=== PATIENT | male | born 1955 | race Caucasian/White ===

== ENCOUNTER 2020-06-07 12:19 | Observation (INO) | payer MEDICARE ==
[2020-06-07] MEDS ORDERED: FUROSEMIDE 10 MG/ML 10 ML VIAL IV STA (12:41)
[2020-06-07] MEDS ORDERED: HYDROmorphone 0.5 MG/0.5 ML SYRINGE IVP STA (12:43)
--- NOTE | 2020-06-07 12:43 | ED ---
General Adult HPI - General Chief complaint: Extremity Problem,Nontraumatic Stated complaint: leg & feet swelling Time Seen by Provider: 06/07/20 12:25 Source: patient, RN notes reviewed, old records reviewed Mode of arrival: wheelchair Limitations: no limitations - History of Present Illness Initial comments: This is a 64-year-old male who presents emergency Department complaining that he said swelling ever since he had back surgery in March. Patient states the swelling has gotten progressively worse. Patient states on 2 different diuretics but it's not helping. Patient denies any difficulty breathing shortness of breath or chest discomfort. Patient denies any fever chills or cough. Patient states the discomfort in his legs are so bad that he has been unable to sleep lately. Patient denies any history of kidney dysfunction or significant swelling prior to the surgery. Patient denies any calf tenderness - Related Data Allergies Allergy/AdvReac Type Severity Reaction Status Date / Time No Known Allergies Allergy Verified 06/07/20 12:29 Review of Systems ROS Statement: Those systems with pertinent positive or pertinent negative responses have been documented in the HPI. ROS Other: All systems not noted in ROS Statement are negative. Past Medical History Past Medical History: Hypertension History of Any Multi-Drug Resistant Organisms: None Reported Past Surgical History: Back Surgery, Cholecystectomy, Hernia Repair, Joint Replacement, Orthopedic Surgery Past Psychological History: No Psychological Hx Reported Smoking Status: Never smoker Past Alcohol Use History: None Reported Past Drug Use History: None Reported General Exam - General Exam Comments Initial Comments: GENERAL: Patient is well-developed and well-nourished. Patient is nontoxic and well- hydrated and is in mild distress. ENT: Neck is soft and supple. No significant lymphadenopathy is noted. Oropharynx is clear. Moist mucous membranes. Neck has full range of motion without lyly citing any pain. EYES: The sclera were anicteric and conjunctiva were pink and moist. Extraocular movements were intact and pupils were equal round and reactive to light. Eyelids were unremarkable. PULMONARY: Unlabored respirations. Good breath sounds bilaterally. No audible rales rhonchi or wheezing was noted. CARDIOVASCULAR: There is a regular rate and rhythm without any murmurs gallops or rubs. ABDOMEN: Soft and nontender with normal bowel sounds. SKIN: Skin is clear with no lesions or rashes and otherwise unremarkable. NEUROLOGIC: Patient is alert and oriented x3. Cranial nerves II through XII are grossly intact. Motor and sensory are also intact. Normal speech, volume and content. Symmetrical smile. MUSCULOSKELETAL: Normal extremities with adequate strength and full range of motion. 2+ edema bilaterally LYMPHATICS: No significant lymphadenopathy is noted PSYCHIATRIC: Normal psychiatric evaluation. Limitations: no limitations Course Vital Signs 06/07/20 12:26 Temperature 98.2 F Pulse Rate 70 Respiratory 18 Rate Blood Pressure 152/82 O2 Sat by Pulse 99 Oximetry Medical Decision Making - Medical Decision Making EKG shows normal sinus rhythm at 60 bpm ND interval is on a 48 QRS is 82 QT interval 426 QTC is 426. Patient's EKG shows no ST segment elevation or depression or T wave abnormalities are noted. Patient received Lasix in the emergency department - Lab Data Result diagrams: 06/07/20 12:46 06/07/20 12:46 Lab Results 06/07/20 06/07/20 06/07/20 Range/Units 12:46 12:46 12:46 WBC 7.7 (3.8-10.6) k/uL RBC 4.62 (4.30-5.90) m/uL Hgb 12.9 L (13.0-17.5) gm/dL Hct 39.9 (39.0-53.0) % MCV 86.4 (80.0-100.0) fL MCH 27.9 (25.0-35.0) pg MCHC 32.3 (31.0-37.0) g/dL RDW 13.9 (11.5-15.5) % Plt Count 177 (150-450) k/uL Neutrophils % 70 % Lymphocytes % 23 % Monocytes % 4 % Eosinophils % 2 % Basophils % 1 % Neutrophils # 5.3 (1.3-7.7) k/uL Lymphocytes # 1.8 (1.0-4.8) k/uL Monocytes # 0.3 (0-1.0) k/uL Eosinophils # 0.1 (0-0.7) k/uL Basophils # 0.1 (0-0.2) k/uL PT 9.9 (9.0-12.0) sec INR 1.0 (<1.2) APTT 25.2 (22.0-30.0) sec Sodium 139 (137-145) mmol/L Potassium 3.9 (3.5-5.1) mmol/L Chloride 107 (98-107) mmol/L Carbon Dioxide 23 (22-30) mmol/L Anion Gap 9 mmol/L BUN 12 (9-20) mg/dL Creatinine 0.66 (0.66-1.25) mg/dL Est GFR (CKD-EPI)AfAm >90 (>60 ml/min/1.73 sqM) Est GFR (CKD-EPI)NonAf >90 (>60 ml/min/1.73 sqM) Glucose 104 H (74-99) mg/dL Plasma Lactic Acid Bernardo (0.7-2.0) mmol/L Calcium 9.0 (8.4-10.2) mg/dL Magnesium 1.8 (1.6-2.3) mg/dL Total Bilirubin 0.5 (0.2-1.3) mg/dL AST 26 (17-59) U/L ALT 14 (4-49) U/L Alkaline Phosphatase 133 H (38-126) U/L Troponin I (0.000-0.034) ng/mL NT-Pro-B Natriuret Pep pg/mL Total Protein 6.8 (6.3-8.2) g/dL Albumin 4.1 (3.5-5.0) g/dL 06/07/20 06/07/20 06/07/20 Range/Units 12:46 12:46 12:46 WBC (3.8-10.6) k/uL RBC (4.30-5.90) m/uL Hgb (13.0-17.5) gm/dL Hct (39.0-53.0) % MCV (80.0-100.0) fL MCH (25.0-35.0) pg MCHC (31.0-37.0) g/dL RDW (11.5-15.5) % Plt Count (150-450) k/uL Neutrophils % % Lymphocytes % % Monocytes % % Eosinophils % % Basophils % % Neutrophils # (1.3-7.7) k/uL Lymphocytes # (1.0-4.8) k/uL Monocytes # (0-1.0) k/uL Eosinophils # (0-0.7) k/uL Basophils # (0-0.2) k/uL PT (9.0-12.0) sec INR (<1.2) APTT (22.0-30.0) sec Sodium (137-145) mmol/L Potassium (3.5-5.1) mmol/L Chloride (98-107) mmol/L Carbon Dioxide (22-30) mmol/L Anion Gap mmol/L BUN (9-20) mg/dL Creatinine (0.66-1.25) mg/dL Est GFR (CKD-EPI)AfAm (>60 ml/min/1.73 sqM) Est GFR (CKD-EPI)NonAf (>60 ml/min/1.73 sqM) Glucose (74-99) mg/dL Plasma Lactic Acid Bernardo 0.7 (0.7-2.0) mmol/L Calcium (8.4-10.2) mg/dL Magnesium (1.6-2.3) mg/dL Total Bilirubin (0.2-1.3) mg/dL AST (17-59) U/L ALT (4-49) U/L Alkaline Phosphatase (38-126) U/L Troponin I <0.012 (0.000-0.034) ng/mL NT-Pro-B Natriuret Pep 162 pg/mL Total Protein (6.3-8.2) g/dL Albumin (3.5-5.0) g/dL Disposition Clinical Impression: Bilateral leg edema Disposition: ADMITTED IP TO THIS HOSP Referrals: Mitul Craig MD [Primary Care Provider] - 1-2 days Time of Disposition: 14:02
[2020-06-07 13:02] LABS: Basophils # (A) 0.1 k/uL (0-0.2); Basophils % (A) 1 %; Eosinophils # (A) 0.1 k/uL (0-0.7); Eosinophils % (A) 2 %; HCT 39.9 % (39.0-53.0); HGB 12.9 gm/dL (13.0-17.5); Lymphocytes # (A) 1.8 k/uL (1.0-4.8); Lymphocytes % (A) 23 %; MCH 27.9 pg (25.0-35.0); MCHC 32.3 g/dL (31.0-37.0); MCV 86.4 fL (80.0-100.0); Mean Platelet Volume 7.4; Monocytes # (A) 0.3 k/uL (0-1.0); Monocytes % (A) 4 %; Neutrophils # (A) 5.3 k/uL (1.3-7.7); Neutrophils % (A) 70 %; Platelet Count 177 k/uL (150-450); RBC 4.62 m/uL (4.30-5.90); RDW 13.9 % (11.5-15.5); WBC 7.7 k/uL (3.8-10.6)
[2020-06-07 13:18] LABS: ALT 14 U/L (4-49); AST 26 U/L (17-59); African American GFR (CKD) >90 (>60 ml/min/1.73 sqM); Albumin 4.1 g/dL (3.5-5.0); Alkaline Phosphatase 133 U/L (38-126); Anion Gap 9 mmol/L; Blood Urea Nitrogen 12 mg/dL (9-20); Carbon Dioxide 23 mmol/L (22-30); Chloride 107 mmol/L (98-107); Glucose 104 mg/dL (74-99); Magnesium 1.8 mg/dL (1.6-2.3); Non-African American GFR(CKD) >90 (>60 ml/min/1.73 sqM); Partial Thromboplastin Time 25.2 sec (22.0-30.0); Potassium 3.9 mmol/L (3.5-5.1); Prothrombin Time 9.9 sec (9.0-12.0); Sodium 139 mmol/L (137-145); Total Bilirubin 0.5 mg/dL (0.2-1.3); Total Protein 6.8 g/dL (6.3-8.2)
--- NOTE | 2020-06-07 14:22 | US ---
EXAMINATION TYPE: US abdomen limited DATE OF EXAM: 06/07/2020 COMPARISON: NONE CLINICAL HISTORY: Bilateral leg swelling . Bilateral leg edema, rule out venous thrombosis within abd omen EXAM MEASUREMENTS: Liver Length: 12.7 cm Gallbladder Wall: Surgically absent CBD: 0.4 cm Right Kidney: 11.0 x 5.0 x 4.7 cm *Technical limitations due to large amount of overlying bowel content Pancreas: Obscured by bowel gas Liver: only visualized intercostally, visualized portions appear wnl, short segment of portal vein a ppears patent Gallbladder: Surgically absent Evidence for sonographic Ferrari's sign: no CBD: appears wnl Right Kidney: no evidence of hydronephrosis IVC: obscured by overlying bowel content IMPRESSION: No dilated ducts. No evidence of right kidney obstruction. There is flow in the portal vein.
--- NOTE | 2020-06-07 14:35 | XR ---
EXAMINATION TYPE: XR chest 2V DATE OF EXAM: 06/07/2020 COMPARISON: NONE HISTORY: Short of breath TECHNIQUE: 2 views FINDINGS: Heart is normal. Lungs are clear of infiltrate. There are no hilar masses. Costophrenic ang les are clear. There is spurring in the thoracic spine. There is no pleural effusion. IMPRESSION: No active cardiopulmonary disease. Normal heart.
[2020-06-07] MEDS ORDERED: FUROSEMIDE 10 MG/ML 4 ML VIAL IV SCH (16:00)
[2020-06-07] MEDS: HYDROmorphone 0.5 MG/0.5 ML SYRINGE IVP PRN ×2 (16:47→21:02)
[2020-06-07] MEDS ORDERED: LACTULOSE 20 GM/30 ML CUP PO PRN (18:03)
[2020-06-07] MEDS ORDERED: NALOXONE 0.4 MG/ML 1 ML VIAL IV PRN (18:03)
[2020-06-07] MEDS ORDERED: MAGNESIUM HYDROXIDE 2,400 MG/10 ML CUP PO PRN (18:03)
[2020-06-07] MEDS ORDERED: MELATONIN 3 MG TABLET PO PRN (18:03)
[2020-06-07] MEDS ORDERED: ONDANSETRON 4 MG/2 ML VIAL IVP PRN (18:03)
[2020-06-07] MEDS ORDERED: CALCIUM CARBONATE 500 MG CHEWABLE PO PRN (18:03)
[2020-06-07] MEDS ORDERED: ACETAMINOPHEN TAB 325 MG TAB PO PRN (18:03)
[2020-06-07] MEDS ORDERED: MAG HYDROX/AL HYDROX/SIMETH 30 ML CUP PO PRN (18:03)
[2020-06-07] MEDS: MORPHINE SULFATE IR 15 MG TABLET PO PRN (18:39)
[2020-06-07] MEDS ORDERED: SPIRONOLACTONE 25 MG TAB PO SCH (21:00)
[2020-06-07] MEDS ORDERED: DOXAZOSIN 2 MG TAB PO SCH (21:00)
[2020-06-07] MEDS ORDERED: IOPAMIDOL CONTRAST (ORAL USE) VIAL PO PRN (21:27)
--- NOTE | 2020-06-07 22:30 | P.HPIM ---
History of Present Illness H&P Date: 06/07/20 Chief Complaint: Lower extremity edema History of presenting complaint: This is a 64-year-old patient follows with Dr. Craig. Chronic stable medical conditions include BPH, hypertension, osteoarthritis. Patient has his left knee surgery done approximately December of this year and also had his fourth back surgery on March of this year. Patient noted progressive swelling in lower extremity. Finding difficulty to walk. He is to walk in a particular position because of his back surgery. Does use a cane. Denies any chest pain or shortness of breath. No orthopnea or PND. In the ER he was given IV Lasix. No fever no chills. No Review of systems: GEN.: Tired, fair appetite EYES: None HEENT: None NECK: None RESPIRATORY: None CARDIOVASCULAR: [Edema GASTROINTESTINAL: None GENITOURINARY: None MUSCULOSKELETAL: Chronic joint pains LYMPHATICS: None HEMATOLOGICAL: None PSYCHIATRY: Anxious NEUROLOGICAL: None Past medical history to include: Hypertension, osteoarthritis, BPH Social history: . Smoked about half a pack a day for just over [address] Seals 9 months ago. Started drinking any alcohol twinges ago. Not heavy alcohol in the past. Does use a cane. Family history: Reviewed, noncontributory to presentation Physical examination: VITAL SIGNS: 98.2, 70, 18, 152/82, 99% on room air GENERAL: BMI 27.9, sitting up, but anxious. EYES: Pupils equal. Conjunctiva normal. HEENT: External appearance of nose and ears normal, oral cavity grossly normal. NECK: JVD not raised; masses not palpable. HEART: First and second heart sounds are normal; some edema below the knees. LUNGS: Respiratory rate normal; clear to auscultation. ABDOMEN: Soft, nontender, liver spleen not palpable, no masses palpable. PSYCH: Alert and oriented x3; mood and affect anxiousl. NEUROLOGICAL: Cranial nerves grossly intact; no facial asymmetry, power and sensation grossly intact. LYMPHATICS: No lymph nodes palpable in the axilla and neck INVESTIGATIONS, reviewed in the clinical context: White count 7.7 hemoglobin 12.9 platelets 177 potassium 3.9 creatinine 0.66 ProBNP 162 troponin I less than 0.012 EKG tracing personally reviewed by me-normal sinus rhythm Chest x-ray film personally reviewed by me-lung perez clear Assessment: -This is the patient's had some progressive swelling of lower extremity for some time. Patient not very active. He had knee surgery a few months ago for her back surgery. Most likely patient lower extremity venous insufficiency. Patient has some chronic pain from his arthritis. Patient denies any cardiac symptoms of shortness of breath orthopnea PND. Less likely but will rule out any IVC thrombosis. The bilateral leg swelling. Note patient's findings only below the knees. -Primary osteoarthritis -Gait dysfunction from back surgery and arthritis uses a cane -Essential hypertension -BPH - Plan: Care was discussed with the patient. A strep abuse in both lower extremity. Home medications resumed. We will do a computed tomography scan of the abdomen with IV contrast to rule out any venous thrombosis. We'll also add naproxen 250 mg daily 3 times a day for anti-inflammatory effect. Lovenox for DVT p rophylaxis. Past Medical History Past Medical History: Hypertension, Osteoarthritis (OA) History of Any Multi-Drug Resistant Organisms: None Reported Past Surgical History: Back Surgery, Cholecystectomy, Hernia Repair, Joint Replacement, Orthopedic Surgery Additional Past Surgical History / Comment(s): neck surgeries, shoulder surgery Past Anesthesia/Blood Transfusion Reactions: No Reported Reaction Past Psychological History: No Psychological Hx Reported Smoking Status: Former smoker Past Alcohol Use History: None Reported Past Drug Use History: None Reported Medications and Allergies Home Medications Medication Instructions Recorded Confirmed Type Docusate [Colace] 100 mg PO DAILY@119906/07/20 06/07/20 History Doxazosin Mesylate 2 mg PO HS 06/07/20 06/07/20 History Enalapril Maleate [Vasotec] 5 mg PO DAILY 06/07/20 06/07/20 History Ferrous Sulfate [Feosol] 325 mg PO DAILY@119906/07/20 06/07/20 History Furosemide [Lasix] 20 mg PO DAILY PRN 06/07/20 06/07/20 History Morphine Sulfate Ir [MSIR] 30 mg PO TID PRN 06/07/20 06/07/20 History Naproxen [Naprosyn] 500 mg PO DAILY 06/07/20 06/07/20 History Potassium Gluconate 99 mg PO DAILY@119906/07/20 06/07/20 History Spironolactone [Aldactone] 12.5 mg PO HS 06/07/20 06/07/20 History Allergies Allergy/AdvReac Type Severity Reaction Status Date / Time No Known Allergies Allergy Verified 06/07/20 14:31 Physical Exam Vitals: Vital Signs Temp Pulse Pulse Resp BP BP Pulse Ox 06/07/20 19:46 98.3 F 71 18 150/87 96 06/07/20 14:57 98.1 F 75 16 142/74 97 06/07/20 14:23 98.3 F 88 18 142/80 97 06/07/20 12:26 98.2 F 70 18 152/82 99 Intake and Output 06/07/20 06/07/20 06/07/20 06:59 14:59 22:59 Other: Voiding Method Urinal Weight 78.5 kg 78.5 kg Results CBC & Chem 7: 06/07/20 12:46 06/07/20 12:46 Labs: Abnormal Lab Results - Last 24 Hours (Table) 06/07/20 06/07/20 Range/Units 12:46 12:46 Hgb 12.9 L (13.0-17.5) gm/dL Glucose 104 H (74-99) mg/dL Alkaline Phosphatase 133 H (38-126) U/L Thrombosis Risk Factor Assmnt - Choose All That Apply Each Factor Represents 1 point: Medical pt on bed rest, Obesity (BMI >25), Swollen legs (current) Each Risk Factor Represents 2 Points: Age 61-74 years, Patient confined to bed Other congenital or acquired thrombophilia - If yes, enter type in comment: No Thrombosis Risk Factor Assessment Total Risk Factor Score: 7 Thrombosis Risk Factor Assessment Level: High Risk
[2020-06-07] MEDS: NAPROXEN 250 MG TAB PO SCH (22:56)
[2020-06-07] MEDS: ENOXAPARIN 40 MG/0.4 ML SYRINGE SQ SCH (22:58)
--- NOTE | 2020-06-07 23:53 | CT ---
EXAMINATION TYPE: CT abdomen pelvis w con DATE OF EXAM: 06/07/2020 COMPARISON: None HISTORY: bilateral leg edema,r/o IVC etc thrombosis hx of cholecystectomy and hernia repair CT DLP: 993.7 mGycm Automated exposure control for dose reduction was used. CONTRAST: Performed with IV Contrast, patient injected with 100 mL of Isovue 300. Lung bases are clear. There is no pleural effusion. Heart size is normal. There is no pericardial eff usion. Liver shows no focal defect. Common bile duct measures up to 12 mm. Spleen is intact. There is no pancreatic mass. Stomach is intact. There is no adrenal mass. Kidneys show satisfactory contrast opacification. There is no hydronephrosi s. Ureters are not dilated. There is no retroperitoneal adenopathy. Delayed images show normal renal excretion. 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 There is no evidence of pelvic mass. Bladder distends smoothly. There is no inguinal hernia. There is no free fluid in the pelvis. Appendix is not seen. There is no sign of thickened appendix. There is no mesenteric edema. There is no ascites or free air. There is no bowel obstruction. There is multilevel lower lumbar laminectomy defect. There is posterior fusion surgery from L2 to L4. The bony pelvis is intact. Hip joints are intact. There is small hiatal hernia. There is normal contrast opacification of the inferior vena cava. There is normal opacification of th e portal venous system. I see no evidence of venous thrombosis. There appears to be normal contrast o pacification of the femoral and iliac veins. There are a few air bubbles in the subcutaneous tissues over the left mid abdomen consistent with inj ection site. IMPRESSION: No evidence of venous thrombosis. Multilevel lumbar spine surgery. No acute abnormality within the abdomen pelvis.
[2020-06-08] MEDS: MORPHINE SULFATE IR 15 MG TABLET PO PRN ×3 (02:51→15:52)
[2020-06-08 07:17] VITALS: PULSE 71; RESP 18
[2020-06-08 08:08] LABS: African American GFR (CKD) >90 (>60 ml/min/1.73 sqM); Anion Gap 5 mmol/L; Blood Urea Nitrogen 12 mg/dL (9-20); Calcium 8.7 mg/dL (8.4-10.2); Carbon Dioxide 29 mmol/L (22-30); Chloride 103 mmol/L (98-107); Glucose 98 mg/dL (74-99); Non-African American GFR(CKD) >90 (>60 ml/min/1.73 sqM); Potassium 3.7 mmol/L (3.5-5.1); Sodium 137 mmol/L (137-145)
[2020-06-08] MEDS: NAPROXEN 250 MG TAB PO SCH ×2 (08:20→15:51)
[2020-06-08] MEDS: ENOXAPARIN 40 MG/0.4 ML SYRINGE SQ SCH (08:21)
[2020-06-08] MEDS ORDERED: lisinopriL 10 MG TAB PO SCH (09:00)
[2020-06-08] MEDS ORDERED: RX INFO: IV CONTRAST WAS GIVEN 1 EACH MISC MISCELLANE PRN (11:38)
[2020-06-08] MEDS ORDERED: DOCUSATE 100 MG CAP PO SCH (12:00)
[2020-06-08] MEDS ORDERED: FERROUS SULFATE 325 MG TAB PO SCH (12:00)
--- NOTE | 2020-06-08 12:16 | P.PN ---
Subjective Progress Note Date: 06/08/20 Principal diagnosis: Lower extremity swelling HISTORY OF PRESENTING ILLNESS This is a pleasant 64-year-old male with history of BPH, hypertension, osteoarthritis, multiple orthopedic issues with recent knee surgery 3 months ago and back surgery 6 months ago. He presents secondary to lower extremity edema and pain in his legs. He admits that this is mainly been going on for last 3 months after he had knee surgery. He admits that he was not very active at the time. He is on home Lasix and has not noted much help. He has tried compression stockings in the past however states it just made the swelling up to his knees. He denies cardiac history, no heart attack no heart failure diagnosis and no arrhythmias. He does not follow with a orthoptist. He believes he has had a prior stress test which was normal a number of years back. He denies any chest pain, pressure, shortness breath. He has not line is back secondary to orthopedic complaints however no orthopnea. He admits that prior to his surgery 6 months ago he had multiple pains however could walk up of fl ight of stairs without shortness breath or chest pain. Currently he is walking with a walker. He admits his leg pain is much better than yesterday. He was given IV Lasix as well as keeping his legs elevated. DIAGNOSTICS EKG reveals normal sinus rhythm, normal axis, no significant ST or T-wave a bnormalities.. Chest xray no acute cardiopulmonary process.. Laboratory reviewed, white blood cell count 7.7, hemoglobin 12.9, platelets 177, creatinine 0.66, BNP 162, troponin negative 1.. Current cardiac medications include Cardura 2 mg nightly, Lovenox 40 mg subcu daily, lisinopril 10 mg daily, naproxen 250 mg 3 times a day, spironolactone 12.5 mg daily. Patient noted to be on Lasix 20 mg daily as needed at home. REVIEW OF SYSTEMS At the time of my exam: CONSTITUTIONAL: Denies fever or chills. CARDIOVASCULAR: Denies chest pain, shortness of breath, orthopnea, PND or palpitations. + Lower extremity edema RESPIRATORY: Denies cough. GASTROINTESTINAL: Denies abdominal pain, diarrhea, constipation, nausea or vomiting. MUSCULOSKELETAL: + Chronic myalgias. NEUROLOGIC: Denies numbness, tingling or weakness. ENDOCRINE: Denies fatigue, weight change, polydipsia or polyurina. GENITOURINARY: Denies burning, hematuria or urgency with micturation. HEMATOLOGIC: Denies history of anemia or bleeding. PHYSICAL EXAMINATION Blood pressure 132/76 heart rate 71 afebrile and maintaining oxygen saturation on room air. CONSTITUTIONAL: No apparent distress. Obese HEENT: Head is normocephalic. Pupils are equal, round. Sclerae anicteric. Mucous membranes of the mouth are moist. No JVD. No carotid bruit. CHEST EXAMINATION: Lungs are clear to auscultation. No chest wall tenderness is noted on palpation or with deep breathing. HEART EXAMINATION: Regular rate and rhythm. S1, S2 heard. No murmurs, gallops or rub. ABDOMEN: Soft, nontender. Positive bowel sounds. EXTREMITIES: 2+ peripheral pulses, bilateral lower extremity edema to the knees, left somewhat greater than right, left knee scar from prior surgery NEUROLOGIC EXAMINATION: Patient is awake, alert and oriented x3. ASSESSMENT 1. Lower extremity edema likely mainly related to venous insufficiency. No significant signs of heart failure and BNP noted to be 162. We will rule out significant DVT with a VQ scan and d-dimer. 2. History of essential hypertension, well controlled 3. Recent knee and back surgery 3 and 6 months ago respectively PLAN Patient did have a CT abdomen and pelvis to rule out IVC obstruction which was n egative for any IVC obstruction. Patient did have some immobilization during the time of his surgeries and we will check a lower extremity duplex to rule out DVT and a d-dimer. If normal, patient may be discharged home with outpatient follow-up. No significant signs of heart failure. Patient believes he had some improvement with Lasix however is also had his legs elevated and suspect a component of venous insufficiency. We discussed treatment for venous insufficiency including keeping his legs elevated and compression stockings. Patient may be considered for venous patient is an outpatient. Would recommend discontinue naproxen if able to avoid worsening fluid retention Objective - Vital Signs Vital signs: Vital Signs Temp 98.1 F 06/08/20 07:16 Pulse 71 06/08/20 07:48 Resp 18 06/08/20 07:48 BP 132/76 06/08/20 07:16 Pulse Ox 97 06/08/20 07:16 Intake & Output 06/07/20 06/08/20 06/08/20 18:59 06:59 18:59 Intake Total 200 1100 Balance 200 1100 Weight 78.5 kg 77.5 kg Intake: Oral 200 1100 Other: Voiding Method Urinal Urinal Toilet Urinal # Voids 2 - Labs CBC & Chem 7: 06/07/20 12:46 06/08/20 07:20 Labs: Abnormal Lab Results - Last 24 Hours (Table) 06/07/20 06/07/20 Range/Units 12:46 12:46 Hgb 12.9 L (13.0-17.5) gm/dL Glucose 104 H (74-99) mg/dL Alkaline Phosphatase 133 H (38-126) U/L
[2020-06-08 14:39] LABS: African American GFR (CKD) >90 (>60 ml/min/1.73 sqM); Anion Gap 5 mmol/L; Blood Urea Nitrogen 16 mg/dL (9-20); Calcium 9.1 mg/dL (8.4-10.2); Carbon Dioxide 34 mmol/L (22-30); Chloride 100 mmol/L (98-107); Glucose 105 mg/dL (74-99); Non-African American GFR(CKD) >90 (>60 ml/min/1.73 sqM); Potassium 4.1 mmol/L (3.5-5.1); Sodium 139 mmol/L (137-145)
--- NOTE | 2020-06-08 14:46 | CT ---
EXAMINATION TYPE: CT angio chest DATE OF EXAM: 06/08/2020 COMPARISON: None HISTORY: Bilateral leg edema, leg pain CT DLP: 467.9 mGycm Automated exposure control for dose reduction was used. CONTRAST: Performed with IV Contrast, patient injected with 100, wasted 34 ml mL of Isovue 370. There are 3-D post processed images. The lungs are clear of consolidation. There is no evidence of a pulmonary mass. There is no pleural e ffusion. Heart size is normal. There is no pericardial effusion. There are no hilar masses. There is no mediastinal adenopathy. Thoracic aorta is intact. There is no aneurysm or dissection. There is no evidence of any filling defect in the pulmonary arteries. There i s small hiatal hernia. There is hypertrophic degenerative spurring in the thoracic spine. IMPRESSION: No evidence of pulmonary embolism. Negative exam.
--- NOTE | 2020-06-08 14:50 | US ---
EXAMINATION TYPE: US venous doppler duplex LE DATE OF EXAM: 06/08/2020 2:39 PM COMPARISON: NONE CLINICAL HISTORY: r/o DVT. Leg are very painful and swollen, no h/o dvt SIDE PERFORMED: Bilateral TECHNIQUE: The lower extremity deep venous system is examined utilizing real time linear array sonog raisa with graded compression, doppler sonography and color-flow sonography. VESSELS IMAGED: External Iliac Vein (EIV) Common Femoral Vein Deep Femoral Vein Greater Saphenous Vein * Femoral Vein Popliteal Vein Small Saphenous Vein * Proximal Calf Veins (* superficial vessels) Right Leg: Negative for DVT Left Leg: Negative for DVT IMPRESSION: No sign of deep vein thrombosis in both legs.
[2020-06-08 15:07] VITALS: BP 125/76; TEMP 97.8
--- NOTE | 2020-06-08 23:35 | P.DS ---
Providers Date of admission: 06/07/20 14:27 Expected date of discharge: 06/08/20 Attending physician: Reymundo Guzman Consults: 06/07/20 14:08 Consult Physician Urgent Consulting Provider: [facility] Consult Reason/Comments: Bilateral leg edema Do you want consulting provider notified?: Yes [facility] Course: Chief Complaint: Lower extremity edema History of presenting complaint: This is a 64-year-old patient follows with Dr. Craig. Chronic stable medical conditions include BPH, hypertension, osteoarthritis. Patient has his left knee surgery done approximately December of this year and also had his fourth back surgery on March of this year. Patient noted progressive swelling in lower extremity. Finding difficulty to walk. He is to walk in a particular position because of his back surgery. Does use a cane. Denies any chest pain or shortness of breath. No orthopnea or PND. In the ER he was given IV Lasix. No fever no chills. No. Computed tomography scan of the abdomen and ultrasound abdomen done to rule out any venous thrombosis intra-abdominal. Computed tomography scan of the done chest PE to rule out. Negative for DVT. Diagnosis felt to be venous insufficiency. Told to use Liam wraps. Care was discussed the patient and Dr. Rojas from [facility] he. we will have 2-D echocardiogram as outpatient. Naproxen added for pain. Discussion and discharge planning more than 35 minutes Consultation: Dr. Rojas from cardiology Physical examination: VITAL SIGNS: 97.8, 68, 16, 125/76, 98% room air GENERAL: BMI 27.9, sitting up, but anxious. EYES: Pupils equal. Conjunctiva normal. HEENT: External appearance of nose and ears normal, oral cavity grossly normal. NECK: JVD not raised; masses not palpable. HEART: First and second heart sounds are normal; edema decreased LUNGS: Respiratory rate normal; clear to auscultation. ABDOMEN: Soft, nontender, liver spleen not palpable, no masses palpable. PSYCH: Alert and oriented x3; mood and affect anxiousl. INVESTIGATIONS, reviewed in the clinical context: White count 7.7 hemoglobin 12.9 platelets 177 potassium 3.9 creatinine 0.66 ProBNP 162 troponin I less than 0.012 EKG tracing personally reviewed by me-normal sinus rhythm Chest x-ray film personally reviewed by me-lung perez clear chest CT-negative for PE Venous Doppler negative for DVT Computed tomography scan abdomen and pelvis negative for any venous thrombosis Assessment: -Tbilateral lower extremity swelling from likely venous insufficiency -Primary osteoarthritis -Gait dysfunction from back surgery and arthritis uses a cane -Essential hypertension -BPH -chronic back pain disposition: Home Patient Condition at Discharge: Stable Plan - Discharge Summary Discharge Rx Participant: No New Discharge Prescriptions: New Melatonin 3 mg PO HS PRN tablet PRN Reason: Insomnia Naproxen [Naprosyn] 250 mg PO TID #60 tab Continue Spironolactone [Aldactone] 12.5 mg PO HS Ferrous Sulfate [Iron (65 MG Elemental)] 325 mg PO DAILY@1200 Docusate [Colace] 100 mg PO DAILY@1200 Morphine Sulfate Ir [MSIR] 30 mg PO TID PRN PRN Reason: Pain Furosemide [Lasix] 20 mg PO DAILY PRN PRN Reason: Edema Enalapril Maleate [Vasotec] 5 mg PO DAILY Doxazosin Mesylate 2 mg PO HS Discontinued Potassium Gluconate 99 mg PO DAILY@1200 Naproxen [Naprosyn] 500 mg PO DAILY Discharge Medication List Docusate [Colace] 100 mg PO DAILY@1200 06/07/20 [History] Doxazosin Mesylate 2 mg PO HS 06/07/20 [History] Enalapril Maleate [Vasotec] 5 mg PO DAILY 06/07/20 [History] Ferrous Sulfate [Iron (65 MG Elemental)] 325 mg PO DAILY@1200 06/07/20 [History] Furosemide [Lasix] 20 mg PO DAILY PRN 06/07/20 [History] Morphine Sulfate Ir [MSIR] 30 mg PO TID PRN 06/07/20 [History] Spironolactone [Aldactone] 12.5 mg PO HS 06/07/20 [History] Melatonin 3 mg PO HS PRN tablet 06/08/20 [Rx] Naproxen [Naprosyn] 250 mg PO TID #60 tab 06/08/20 [Rx] Follow up Appointment(s)/Referral(s): Mitul Craig MD [Primary Care Provider] - 1-2 days (call for appointment on Tuesday when office is open) Celso Rojas DO [STAFF PHYSICIAN] - 1 Week (call on Tuesday to schedule follow up appointment when office opens on Tuesday) Patient Instructions/Handouts: Naproxen (By mouth), Leg Edema (ED) Activity/Diet/Wound Care/Special Instructions: elevate legs above the heart when at rest send home with liam wraps
== END 2020-06-08 16:07 | disposition home or self-care (01) ==
LOC: EC 12:19 → 1SOBS 14:27
PROVIDERS: ADMIT Hospitalist; ATTEND Hospitalist
DX: I87.2 Venous insufficiency (chronic) (peripheral) (principal); M19.90 Unspecified osteoarthritis, unspecified site; R26.2 Difficulty in walking, not elsewhere classified; I10 Essential (primary) hypertension; N40.0 Benign prostatic hyperplasia without lower urinary tract symptoms; G89.29 Other chronic pain; M54.9 Dorsalgia, unspecified; E66.9 Obesity, unspecified; Z98.890 Other specified postprocedural states; Z90.49 Acquired absence of other specified parts of digestive tract; Z87.19 Personal history of other diseases of the digestive system; Z96.60 Presence of unspecified orthopedic joint implant; Z87.891 Personal history of nicotine dependence; Z79.899 Other long term (current) drug therapy; Z79.891 Long term (current) use of opiate analgesic; Z68.27 Body mass index [BMI] 27.0-27.9, adult
CPT/HCPCS: 96372 ×2; 96376; 96374; 96375; 99285; 36415; 93005; 85379; 83880; 80053; 80048; 83605; 83735; 84484; 85025; 85610; 85730; 71046; 76705; 93970; 71275; 74177; G0378 ×2; J1940 ×2; J1650 ×2; J1170; Q9967 ×2

== ENCOUNTER → 2021-07-23 | Outpatient (CLI) | payer MEDICARE ==
--- NOTE | 2021-07-23 17:28 | CONS ---
CONSULTATION DATE OF SERVICE: 07/23/2021 This 65-year-old gentleman has been evaluated in Sleep Center for possible obstructive sleep apnea-hypopnea syndrome. HISTORY OF PRESENT ILLNESS/SLEEP-WAKE EVALUATION: Previously the patient had sleep studies which showed obstructive sleep apnea in the range of 8 times per hour, according to the patient and family, and he was not offered any treatment at that time. Study was done in another institution. At present, patient's sleep schedule is from 8 or 9 p.m. until 7:30 or 8 a.m. No problems with falling asleep, although he has a TV set in the bedroom. He usually sleeps on the side position, but at present most of the time he sleeps on a recliner because of his back problems. He snores and has episodes of stopped breathing during sleep. He wakes up from sleep 4 times with nocturia. No history of hypnagogic hallucinations, sleep paralysis or cataplexy. During the day, patient feels extremely sleepy. [place] Sleepiness Scale is in very high range at 20. Patient takes multiple naps during the day. PAST MEDICAL HISTORY: Positive for hypertension, back problems. PAST SURGICAL HISTORY: Several back surgeries, left knee total replacement, left shoulder surgery for rotator cuff problems. MEDICATIONS: 1. Morphine twice a day. 2. Hydrocodone 10/325 mg 3 times a day. 3. Doxazosin 2 mg once a day. REVIEW OF SYSTEMS: No fevers. No double vision. No recent chest pain. No shortness of breath. No abdominal pain. No bleeding episodes. No blood in the urine. No seizure episodes. Loud snoring, multiple awakenings from sleep. FAMILY HISTORY: Cancer, snoring, heart problems. PHYSICAL EXAMINATION: GENERAL: Pleasant patient in no distress. VITAL SIGNS: BP 150/74, HR 66, RR 16, height 5 feet 5-1/2 inches, weight 180.4 pounds, body mass index 29.4, temperature 97.4, oxygen saturation at room air 91%. HEENT: PERRLA, EOMI, evaluation of oropharynx showed tongue protrudes midline. Extremely low position of soft palate; Mallampati IV. NECK: Supple, no JVD. Thyroid is not palpable. Neck measures 15-1/2 inches in circumference. LUNGS: Clear to percussion and to auscultation. Good air exchange. No wheezing or rhonchi. HEART: S1, S2 regular. No murmurs, gallops, or rubs. ABDOMEN: Soft and nontender. Bowel sounds are present. No organomegaly appreciated. EXTREMITIES: No clubbing or cyanosis. LOAD DISPATCHER: Awake, alert, and oriented X3. Cranial nerves 2 to 7 intact. There is no fasciculation or atrophy. noted. No focal deficits observed. IMPRESSION: 1. Snoring, multiple awakenings from sleep with nocturia, extremely low position of soft palate, sleepiness; obstructive sleep apnea-hypopnea syndrome. 2. Patient is on treatment with opioids, which increases risk for central sleep apnea. 3. Back problems and back pain. 4. Hypertension. 5. Status post back surgeries. 6. Status post left knee total replacement. 7. Status post left shoulder surgery for rotator cuff problems. PLAN: 1. Polysomnography for evaluation of patient's breathing during sleep. 2. CPAP/BiPAP titration if sleep study confirms obstructive sleep apnea-hypopnea syndrome. 3. Preferable position during sleep on the side. 4. No driving if patient feels any sleepiness. 5. I will see patient for follow up visit to explain results of testing and following plan. 6. If the patient continues to feel sleepiness, his obstructive sleep apnea and if necessary central sleep apnea will be fixed. He may need multiple sleep latency test. Thank you very much for referring this patient for consultation. Sincerely, Greg Pickering MD, PhD, FAASM Diplomat of [employer] [employer] Sleep Medicine Board of [place] [employer] Rn Ed of [facility] [place] MMODL / IJN: [id number] /
== END | disposition home or self-care (01) ==
LOC: SLEEP 15:24
PROVIDERS: ATTEND Internal Medicine
DX: G47.33 Obstructive sleep apnea (adult) (pediatric) (principal); M54.9 Dorsalgia, unspecified; Z96.651 Presence of right artificial knee joint; Z47.31 Aftercare following explantation of shoulder joint prosthesis
CPT/HCPCS: 99211

== ENCOUNTER → 2022-01-28 | Outpatient (CLI) | payer MEDICARE ==
--- NOTE | 2022-01-28 19:13 | SFUN ---
SLEEP CENTER FOLLOW UP NOTE DATE OF SERVICE: 01/28/2022 This 66-year-old gentleman has been followed in Sleep Center for treatment of obstructive and central sleep apnea-hypopnea syndrome. The patient has extremely severe abnormalities of respiration with apnea-hypopnea index 75 and oxygen desaturation to 54%. I discussed results of his sleep studies with the patient and family in detail. We did 3 sleep studies: polysomnogram, CPAP and BiPAP titration and then Auto Servo ventilator titration. The patient started to use Auto Servo ventilator and he is using it practically every night. Sometimes he has a claustrophobic reaction on the mask. He has a full-face mask. I discussed with the patient and family desensitization procedure related to the mask, other options related to usage of nasal mask and nasal strips if necessary in the future. We discussed the position of the machine and adjustments of humidity in the humidifier and in the tube. [place] Sleepiness Scale today is in high range at 20. I checked the Auto Servo ventilator. Usage is 30/30 nights for 100% of nights and 90% of nights for more than 4 hours, average usage 6 hours 56 minutes which indicates good compliance. Maximal pressure support is 10, minimal 3 and expiratory pressure 15. Leak is 31.2 L/minute with maximal 50.2, which is high. Apnea-hypopnea index is 8.4, which is slightly above normal range. MEDICATIONS: The patient is on morphine twice a day, hydrocodone 10/325 mg up to three times a day, doxazosin 2 mg once a day. PHYSICAL EXAMINATION: GENERAL: Pleasant patient in no distress. VITAL SIGNS: BP 159/75, HR 60, RR 16, weight 190 pounds, temperature 98.4, oxygen saturation at room air 96%. HEENT: PERRLA, EOMI, evaluation of oropharynx showed tongue protrudes midline. Extremely low position of soft palate; Mallampati IV. NECK: Supple, no JVD. Thyroid is not palpable. LUNGS: Clear to percussion and to auscultation. Good air exchange. No wheezing or rhonchi. HEART: S1, S2 regular. No murmurs, gallops, or rubs. ABDOMEN: Soft and nontender. Bowel sounds are present. No organomegaly appreciated. EXTREMITIES: No clubbing or cyanosis. SHREDDING SPECIALIST: Awake, alert, and oriented X3. Cranial nerves 2 to 7 intact. There is no fasciculation or atrophy. noted. No focal deficits observed. IMPRESSION: 1. Severe central and obstructive sleep apnea-hypopnea syndrome; apnea-hypopnea index 75.3 with oxygen desaturation to 54.5%. Patient demonstrated good compliance with treatment, benefitting from treatment. Apnea-hypopnea index reduced to 8.4 average. 2. Sometimes problems with claustrophobic reaction on full-face mask. 3. Back problems and back pain. 4. Hypertension. 5. Status post back surgeries. 6. Status post left knee total replacement. 7. Status post left shoulder surgery for rotator cuff problems. PLAN: 1. Desensitization procedure with full-face mask. I discussed this with the patient and family in detail. 2. If necessary, adjustments of humidity in humidifier and temperature in the tube. I discussed this with the family and patient in detail. 3. Position of the tube should be directly, without any significant from machine to mask. 4. Patient will continue to use Auto Servo ventilator every night for the whole night. 5. Watching and losing weight. 6. No driving if feeling sleepiness. 7. Prescription for all necessary his CPAP supplies. 8. Follow-up visit in 4 months. Thank you very much for allowing me to participate in the management of your patient. Sincerely, Greg Pickering MD, PhD, FAASM Diplomat of [place] [employer] Sleep Medicine Board of [place] [employer] Textile Stylist of [facility] [place] MADI / ADEBAYO: [id number] /
== END | disposition home or self-care (01) ==
LOC: SLEEP 16:17
PROVIDERS: ATTEND Internal Medicine
DX: G47.33 Obstructive sleep apnea (adult) (pediatric) (principal); I10 Essential (primary) hypertension; Z96.651 Presence of right artificial knee joint; Z98.890 Other specified postprocedural states

== ENCOUNTER 2022-07-30 16:32 | Emergency (ER) | payer MEDICARE ==
[2022-07-30 17:23] VITALS: TEMP 99
--- NOTE | 2022-07-30 18:30 | XR ---
EXAMINATION TYPE: XR chest 2V DATE OF EXAM: 07/30/2022 COMPARISON: 06/07/2020 HISTORY: Difficulty breathing TECHNIQUE: FINDINGS: Heart is normal. Lungs are clear of infiltrate. There is some minimal linear density in the anterior right middle lobe. No heart failure. There are no hilar masses. No pleural effusion. There is spinal hardeep stabilizing the thoracolumbar junction. IMPRESSION: Linear density right middle lobe could relate to some scarring or subsegmental atelectasi s and is increased compared to old exam.
[2022-07-30 18:32] LABS: Basophils % (A) 1 %; Eosinophils # (A) 0.1 k/uL (0-0.7); Eosinophils % (A) 2 %; HCT 41.6 % (39.0-53.0); HGB 14.4 gm/dL (13.0-17.5); Lymphocytes # (A) 1.6 k/uL (1.0-4.8); Lymphocytes % (A) 34 %; MCH 30.8 pg (25.0-35.0); MCHC 34.5 g/dL (31.0-37.0); MCV 89.1 fL (80.0-100.0); Mean Platelet Volume 8.1; Monocytes # (A) 0.3 k/uL (0-1.0); Monocytes % (A) 6 %; Neutrophils # (A) 2.6 k/uL (1.3-7.7); Neutrophils % (A) 56 %; Platelet Count 132 k/uL (150-450); RBC 4.67 m/uL (4.30-5.90); RDW 12.9 % (11.5-15.5); WBC 4.7 k/uL (3.8-10.6)
[2022-07-30 19:02] LABS: ALT 30 U/L (4-49); AST 26 U/L (17-59); African American GFR (CKD) >90 (>60 ml/min/1.73 sqM); Albumin 3.9 g/dL (3.5-5.0); Alkaline Phosphatase 135 U/L (38-126); Anion Gap 10 mmol/L; Blood Urea Nitrogen 15 mg/dL (9-20); Calcium 8.5 mg/dL (8.4-10.2); Carbon Dioxide 28 mmol/L (22-30); Chloride 102 mmol/L (98-107); Glucose 74 mg/dL (74-99); Non-African American GFR(CKD) >90 (>60 ml/min/1.73 sqM); Potassium 3.6 mmol/L (3.5-5.1); Sodium 140 mmol/L (137-145); Total Bilirubin 0.7 mg/dL (0.2-1.3); Total Protein 6.5 g/dL (6.3-8.2)
[2022-07-30 19:08] LABS: INR 0.9 (<1.2); Partial Thromboplastin Time 24.2 sec (22.0-30.0); Prothrombin Time 10.2 sec (9.0-12.0)
[2022-07-30] MEDS ORDERED: IPRATROPIUM-ALBUTEROL 3 ML NEB INHALATION STA (19:19)
--- NOTE | 2022-07-30 20:20 | ED ---
General Adult HPI - General Chief complaint: Recheck/Abnormal Lab/Rx Stated complaint: poss clot Time Seen by Provider: 07/30/22 19:12 Source: patient, RN notes reviewed, old records reviewed Mode of arrival: wheelchair Limitations: no limitations - History of Present Illness Initial comments: Patient is a 66 her old male who presents emergency Department complaining of abnormal laboratory studies. Was instructed by his wind tunnel mechanic Dr. Rojas, emergency department because a d-dimer was elevated at an outpatient lab draw. Concerned for possible blood clots. Unknown what the level was. Patient has been getting over COVID-19 infection. Denies chest pain. Does endorse mild coughing, upper respiratory symptoms. He endorses chronic lower extremity swelling which is normal for him. Denies any abdominal pain, nausea, vomiting. Denies diarrhea. Does endorse generalized fatigue which has been present since his COVID-19 infection. Presents for evaluation after being instructed to come to the emergency department. - Related Data Home Medications Medication Instructions Recorded Confirmed Docusate [Colace] 100 mg PO DAILY@1200 06/07/20 06/07/20 Doxazosin Mesylate 2 mg PO HS 06/07/20 06/07/20 Enalapril Maleate [Vasotec] 5 mg PO DAILY 06/07/20 06/07/20 Ferrous Sulfate [Iron (65 MG 325 mg PO DAILY@1200 06/07/20 06/07/20 Elemental)] Furosemide [Lasix] 20 mg PO DAILY PRN 06/07/20 06/07/20 Morphine Sulfate Ir [MSIR] 30 mg PO TID PRN 06/07/20 06/07/20 Spironolactone [Aldactone] 12.5 mg PO HS 06/07/20 06/07/20 Previous Rx's Medication Instructions Recorded Melatonin 3 mg PO HS PRN tablet 06/08/20 Naproxen [Naprosyn] 250 mg PO TID #60 tab 06/08/20 Albuterol Inhaler [Ventolin Hfa 1 puff INHALATION QID #8 gm 07/30/22 Inhaler] dexAMETHasone [Decadron] 4 mg PO DAILY 4 Days #4 tab 07/30/22 Allergies Allergy/AdvReac Type Severity Reaction Status Date / Time No Known Allergies Allergy Verified 07/30/22 17:23 Review of Systems ROS Statement: Those systems with pertinent positive or pertinent negative responses have been documented in the HPI. Review of Systems: CONST: Denies fever EYES: Denies blurry vision ENT: Denies nasal congestion C/V: Denies Chest pain RESP: Denies shortness of breath GI: Denies abdominal pain : Denies dysuria SKIN: Denies rash. MSK: Denies joint pain. NEURO: Denies headache ROS Other: All systems not noted in ROS Statement are negative. Past Medical History Past Medical History: Hypertension, Osteoarthritis (OA) History of Any Multi-Drug Resistant Organisms: None Reported Past Surgical History: Back Surgery, Cholecystectomy, Hernia Repair, Joint Replacement, Orthopedic Surgery Additional Past Surgical History / Comment(s): neck surgeries, shoulder surgery Past Anesthesia/Blood Transfusion Reactions: No Reported Reaction Past Psychological History: No Psychological Hx Reported Smoking Status: Former smoker Past Alcohol Use History: None Reported Past Drug Use History: None Reported General Exam - General Exam Comments Initial Comments: General: Appears in no acute distress. HEAD: Normal with no signs of head trauma. EYES: PERRLA, EOMI, conjunctiva normal, no discharge. ENT: Hearing grossly intact, normal oropharynx. RESPIRATORY: Mild end expiratory wheezing. No hypoxia. No increased work of breathing. C/V: Regular rate and rhythm. S1 and S2 auscultated, mild 1+ lower extremity edema., peripheral pulses 2+ and intact throughout ABD: Abd is soft, nontender, nondistended EXT: Normal range of motion, no obvious deformity SKIN: No rashes or lesions observed on exposed skin. NEURO: Alert and oriented 4. Limitations: no limitations Course Vital Signs 07/30/22 17:20 Temperature 99 F Pulse Rate 76 Respiratory 22 Rate Blood Pressure 138/80 O2 Sat by Pulse 99 Oximetry Medical Decision Making - Medical Decision Making Based on the patient's presentation and physical exam, patient was sent in by his wind tunnel mechanic to to an outpatient lab draw that showed no elevated d-dimer. Unknown what the lab draw showed. We will repeat cardiopulmonary labs. Vital signs within acceptable limits. He is getting over a COVID-19 infection and is still somewhat symptomatic. His no acute complaints at this time. Presents to to the laboratory level. Believes it was a d-dimer that was elevated as Dr. Rojas told him there is concern for blood clot. Initial labs were obtained while the patient was in triage and were relatively unremarkable. D-dimer was not among them. Troponin was undetectable. We will obtain a BNP and d-dimer while he is waiting. He was in agreement this plan. Chest x-ray that was obtained showed no acute cardiopulmonary process. It did show findings conc erning for atelectasis in the right lobe. We obtain bilateral lower extremity duplexes which were negative for DVT. D-dimer did return elevated at 0.8, and therefore it CT angiogram of the chest was obtained to rule out PE. CT PE was negative. EKG showed no signs of acute ischemia. I discussed the results of the patient. Vital signs remained within normal limits throughout. He was somewhat wheezy, likely secondary to chronic smoking, possibly exacerbated by his Covid infection. He will be started on outpatient Decadron and given an albuterol inhaler. He was in agreement with this plan. I instructed him to follow up with his wind tunnel mechanic and informed him that workup for clots was negative. He was in agreement this plan. I answered all questions that he had. He said symptoms for greater than 5 days and therefore does not meet criteria for Paxlovid therapy. Discussed isolation until symptoms resolve. He was in agreement this plan. I will provide the patient with a prescription for Decadron, albuterol inhaler. I instructed the patient to follow up with their PCP in the next 1-3 days. I explained that the patient should return to the emergency department if they experience any worsening symptoms. Strict return precautions were discussed with the patient. The patient expressed understanding of these instructions. I answered all questions that the patient had. The patient was discharged home in good condition with their prescriptions and follow up information. - Lab Data Result diagrams: 07/30/22 18:06 07/30/22 18:06 Lab Results 07/30/22 07/30/22 07/30/22 Range/Units 18:06 18:06 18:06 WBC 4.7 (3.8-10.6) k/uL RBC 4.67 (4.30-5.90) m/uL Hgb 14.4 (13.0-17.5) gm/dL Hct 41.6 (39.0-53.0) % MCV 89.1 (80.0-100.0) fL MCH 30.8 (25.0-35.0) pg MCHC 34.5 (31.0-37.0) g/dL RDW 12.9 (11.5-15.5) % Plt Count 132 L (150-450) k/uL MPV 8.1 Neutrophils % 56 % Lymphocytes % 34 % Monocytes % 6 % Eosinophils % 2 % Basophils % 1 % Neutrophils # 2.6 (1.3-7.7) k/uL Lymphocytes # 1.6 (1.0-4.8) k/uL Monocytes # 0.3 (0-1.0) k/uL Eosinophils # 0.1 (0-0.7) k/uL Basophils # 0.0 (0-0.2) k/uL PT 10.2 (9.0-12.0) sec INR 0.9 (<1.2) APTT 24.2 (22.0-30.0) sec D-Dimer (<0.60) mg/L FEU Sodium 140 (137-145) mmol/L Potassium 3.6 (3.5-5.1) mmol/L Chloride 102 (98-107) mmol/L Carbon Dioxide 28 (22-30) mmol/L Anion Gap 10 mmol/L BUN 15 (9-20) mg/dL Creatinine 0.66 (0.66-1.25) mg/dL Est GFR (CKD-EPI)AfAm >90 (>60 ml/min/1.73 sqM) Est GFR (CKD-EPI)NonAf >90 (>60 ml/min/1.73 sqM) Glucose 74 (74-99) mg/dL Calcium 8.5 (8.4-10.2) mg/dL Total Bilirubin 0.7 (0.2-1.3) mg/dL AST 26 (17-59) U/L ALT 30 (4-49) U/L Alkaline Phosphatase 135 H (38-126) U/L Troponin I (0.000-0.034) ng/mL NT-Pro-B Natriuret Pep pg/mL Total Protein 6.5 (6.3-8.2) g/dL Albumin 3.9 (3.5-5.0) g/dL 07/30/22 07/30/22 07/30/22 Range/Units 18:06 18:06 18:06 WBC (3.8-10.6) k/uL RBC (4.30-5.90) m/uL Hgb (13.0-17.5) gm/dL Hct (39.0-53.0) % MCV (80.0-100.0) fL MCH (25.0-35.0) pg MCHC (31.0-37.0) g/dL RDW (11.5-15.5) % Plt Count (150-450) k/uL MPV Neutrophils % % Lymphocytes % % Monocytes % % Eosinophils % % Basophils % % Neutrophils # (1.3-7.7) k/uL Lymphocytes # (1.0-4.8) k/uL Monocytes # (0-1.0) k/uL Eosinophils # (0-0.7) k/uL Basophils # (0-0.2) k/uL PT (9.0-12.0) sec INR (<1.2) APTT (22.0-30.0) sec D-Dimer 0.87 H (<0.60) mg/L FEU Sodium (137-145) mmol/L Potassium (3.5-5.1) mmol/L Chloride (98-107) mmol/L Carbon Dioxide (22-30) mmol/L Anion Gap mmol/L BUN (9-20) mg/dL Creatinine (0.66-1.25) mg/dL Est GFR (CKD-EPI)AfAm (>60 ml/min/1.73 sqM) Est GFR (CKD-EPI)NonAf (>60 ml/min/1.73 sqM) Glucose (74-99) mg/dL Calcium (8.4-10.2) mg/dL Total Bilirubin (0.2-1.3) mg/dL AST (17-59) U/L ALT (4-49) U/L Alkaline Phosphatase (38-126) U/L Troponin I <0.012 (0.000-0.034) ng/mL NT-Pro-B Natriuret Pep 108 pg/mL Total Protein (6.3-8.2) g/dL Albumin (3.5-5.0) g/dL - EKG Data -: EKG Interpreted by Me EKG Comments: 12-lead Electrocardiogram Interpretation Note EKG was reviewed and interpreted by myself. 12-lead ECG performed at 1805 is int erpreted by me as revealing normal sinus rhythm at a rate of 60 beats per minute. Corinne is normal. KS interval is 156 ms, QRS duration is 86 ms, QTc is 417 ms.. There were no ST or T wave abnormalities to suggest myocardial ischemia or injury. R wave progression across the precordium was satisfactory. By my interpretation this EKG is non-diagnostic for acute ischemia. Disposition Clinical Impression: Elevated d-dimer, COVID-19 virus infection Disposition: HOME SELF-CARE Condition: Good Instructions (If sedation given, give patient instructions): COVID-19 (Coron avirus Disease 2019) (ED) Prescriptions: dexAMETHasone [Decadron] 4 mg PO DAILY 4 Days #4 tab Albuterol Inhaler [Ventolin Hfa Inhaler] 1 puff INHALATION QID #8 gm Is patient prescribed a controlled substance at d/c from ED?: No Referrals: Mitul Craig MD [Primary Care Provider] - 1-2 days Time of Disposition: 22:05
--- NOTE | 2022-07-30 20:46 | US ---
EXAMINATION TYPE: US venous doppler duplex LE BI DATE OF EXAM: 07/30/2022 8:13 PM COMPARISON: 06/08/2020 CLINICAL HISTORY: LE swelling, eval for DVT. Edema SIDE PERFORMED: Bilateral TECHNIQUE: The lower extremity deep venous system is examined utilizing real time linear array sonog raisa with graded compression, doppler sonography and color-flow sonography. VESSELS IMAGED: Common Femoral Vein Deep Femoral Vein Greater Saphenous Vein * Femoral Vein Popliteal Vein Small Saphenous Vein * Proximal Calf Veins (* superficial vessels) Right Leg: Negative for DVT Left Leg: Negative for DVT IMPRESSION: No evidence of deep vein thrombosis in both legs.
--- NOTE | 2022-07-30 22:05 | CT ---
EXAMINATION TYPE: CT chest angio for PE DATE OF EXAM: 07/30/2022 COMPARISON: 06/08/2020 HISTORY: elevated dimer, concern for PE CT DLP: 440 mGycm Automated exposure control for dose reduction was used. CONTRAST: Performed with IV Contrast, patient injected with 100ml mL of Isovue 370. Images obtained from the thoracic inlet to the diaphragm with the IV contrast. There are Three-D post processed images. The lungs are clear of consolidation. No pleural effusion or pneumothorax. There is some mild reticul ar density at the left posterior lung base. Heart size is normal. No pericardial effusion. There is n ormal contrast opacification of the pulmonary arteries. No filling defect. No mediastinal adenopathy. There are no hilar masses. The thoracic spine is intact. There is fusion surgery at the thoracolumba r junction. IMPRESSION: No evidence of pulmonary embolism. There is some mild interstitial infiltrate and atelectasis left po sterior lung base which appears new compared to the old exam. Normal heart. No suspicious pulmonary m ass.
[2022-07-30] MEDS ORDERED: dexAMETHasone 4 MG TAB PO STA (22:10)
[2022-07-30 22:33] VITALS: BP 131/68; PULSE 71; RESP 15
== END 2022-07-30 22:34 | disposition home or self-care (01) ==
LOC: EC 16:32
DX: R79.1 Abnormal coagulation profile (principal); B34.2 Coronavirus infection, unspecified; I10 Essential (primary) hypertension; M19.90 Unspecified osteoarthritis, unspecified site; Z87.891 Personal history of nicotine dependence; Z79.899 Other long term (current) drug therapy
CPT/HCPCS: 36415; 85379; 83880; 80053; 84484; 85025; 85610; 85730; 71046; 93970; 71275; 99284; J8540; Q9967

== ENCOUNTER → 2022-09-16 | Outpatient (CLI) | payer MEDICARE ==
--- NOTE | 2022-09-16 17:51 | P.PN ---
Subjective DATE: 09/16/2022 FOLLOW UP VISIT. Patient with obstructive sleep apnea hypopnea syndrome return to sleep center for follow-up visit. Information from previous visit have been reviewed. Patient is using ASV equipment, but has difficulties related to insufficient pressure in the unit when he is starting to use it. [place] sleepiness scale is increased to 15. I checked information from ASV unit. PAP unit pressure pressure-support 3-10, expiratory pressure 15 cm H2O. Usage is 100 % for more then 4 hours, average 6 hours per night. Leak is 25 l/m, which is in acceptable range. Apnea Hypopnea Index is 2.8, which is normal. Ramp is 45 minutes and started from 4. MEDICATIONS:1. Morphine 15 mg up to 3 times a day 2. Doxazosin twice a day 3. Enalapril 5 mg once a day During physical exam: GENERAL: A pleasant patient without any distress. VITAL SIGNS: BP 187/46, HR and 82, RR 16, weight 184, temperature 98.1, oxygen saturation at room air 99 % . HEENT: PERRLA, EOMI.low position of soft palate, Mallapati 4 . NECK: Supple. No JVD. LUNGS: Clear to percussion and to auscultation. Good air exchange. No wheezing or rhonchi. HEART: S1, S2 regular. ABDOMEN: Soft and nontender.[] EXTREMITIES: No clubbing or cyanosis. TRIMMER MEAT: Awake, alert, and oriented x3. No focal deficit. Impressions: 1. 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 Patient demonstrated great compliance with treatment, benefiting from treatment. 2. Hypertension. 3. Back problems. 4. Status post back surgeries. 5. Status post left knee total replacement. 6. Status post left shoulder surgery for rotator cuff problems. Plan: 1. Continue using ASV equipment every night for the whole night. I increased pressure for ramp. We tried new level all starting pressure in the office, patient likes it and feel comfortable. 2. To change air filter at least 1-2 times per month. 3. PAP unit should stay lower then position of the head. 4. Advised patient to remove all remaining water from humidifier canister daily and make it dry after each usage. Refill canister with fresh distilled water before each usage. 5. Sleep hygiene with regular time in bed for at least 8 hours. 6. Precautions related to driving. No driving if feel any sleepiness. 7. I will maintain prescription for PAP supplies including mask, tube, filters. 8. Follow up visit in 6 months or earlier if patient has any problems. 9. Watching weight. Thank you very much for allowing me to participate in the management of your patient. Greg Pickering MD, PhD, FAASM. Diplomat of [place] Board of Sleep Medicine, Sleep Medicine Board by [place] Board of [employer] Medicine Shorts Sifter of [facility] [place]
== END ==
LOC: SLEEP 15:17
PROVIDERS: ATTEND Internal Medicine
DX: G47.33 Obstructive sleep apnea (adult) (pediatric) (principal); I10 Essential (primary) hypertension; M54.50 Low back pain, unspecified; Z98.890 Other specified postprocedural states; Z96.652 Presence of left artificial knee joint; Z79.899 Other long term (current) drug therapy
CPT/HCPCS: 99212

== ENCOUNTER → 2023-03-17 | Outpatient (CLI) | payer MEDICARE ==
--- NOTE | 2023-03-17 11:26 | P.PN ---
Subjective DATE: 03/17/2023 FOLLOW UP VISIT. Patient with obstructive sleep apnea hypopnea syndrome return to sleep center for follow-up visit. Information from previous visit have been reviewed. Patient is using ASV equipment every night for the whole night, getting PAP supplies in time. The patient does not have significant problems with the mask, ASV unit and humidification. [place] sleepiness scale is increased to 17. I checked information from ASV unit. ASV unit pressure expiratory pressure 15, pressure-support 3-10, average pressure 21.3/15.3 cm H2O. Usage is 100 % for more then 4 hours, average 6.1 hours per night. Leak is 23 l/m, which is in acceptable range. Apnea Hypopnea Index is 0.2, which is normal. MEDICATIONS:1. Morphine 15 mg twice a day 2. Doxazosin 2 mg once a day 3. Enalapril 5 mg once a day 4. Furosemide 40 mg once a day During physical exam: GENERAL: A pleasant patient without any distress. VITAL SIGNS: BP 131/79, HR 60, RR 16 , weight 184.0, temperature 97.9, oxygen saturation at room air 97 % . HEENT: PERRLA, EOMI.low position of soft palate, Mallapati 4 . NECK: Supple. No JVD. LUNGS: Clear to percussion and to auscultation. Good air exchange. No wheezing or rhonchi. HEART: S1, S2 regular. ABDOMEN: Soft and nontender.[] EXTREMITIES: No clubbing or cyanosis. PUBLIC AFFAIRS DIRECTOR: Awake, alert, and oriented x3. No focal deficit. Impressions: 1. Severe Central and Obstructive sleep apnea-hypopnea syndrome. Patient demonstrated great compliance with treatment, benefiting from treatment. 2. Hypertension. 3. Back problems. 4. Status post back surgeries. 5. Status post left knee replacement. 6. Status post left shoulder surgery for rotator cuff. Plan: 1. Continue using PAP equipment every night for the whole night. 2. To change air filter at least 1-2 times per month. 3. PAP unit should stay lower then position of the head. 4. Advised patient to remove all remaining water from humidifier canister daily and make it dry after each usage. Refill canister with fresh distilled water before each usage. 5. Sleep hygiene with regular time in bed for at least 8 hours. 6. Precautions related to driving. No driving if feel any sleepiness. 7. I will maintain prescription for PAP supplies including mask, tube, filters. 8. Watching weight. 9. Follow up visit in 6 months or earlier if patient has any problems. Thank you very much for allowing me to participate in the management of your patient. Greg Pickering MD, PhD, FAASM. Diplomat of [place] Board of Sleep Medicine, Sleep Medicine Board by [place] Board of Internal Medicine Industrial Painter of [facility] [place]
== END ==
LOC: 3 N SLEEP 10:30
PROVIDERS: ATTEND Internal Medicine
DX: G47.33 Obstructive sleep apnea (adult) (pediatric) (principal); I10 Essential (primary) hypertension; Z96.652 Presence of left artificial knee joint; Z98.890 Other specified postprocedural states; M54.50 Low back pain, unspecified; Z96.612 Presence of left artificial shoulder joint; Z99.89 Dependence on other enabling machines and devices; Z79.899 Other long term (current) drug therapy
CPT/HCPCS: 99212

== ENCOUNTER → 2023-09-14 | Outpatient (CLI) | payer MEDICARE ==
--- NOTE | 2023-09-14 12:14 | P.PN ---
Subjective DATE: 09/14/2023 FOLLOW UP VISIT. Patient with central and obstructive sleep apnea hypopnea syndrome return to sleep center for follow-up visit. Information from previous visit have been reviewed. Patient is using ASV equipment most of the nights for the whole night, getting PAP supplies in time. For the last months patient developed episodes of shortness of breath after awakenings, these episodes also happened during the day when he is awake. Patient sleeps on the recliner. The patient does not have significant problems with the mask, PAP unit and humidification. [place] sleepiness scale is[]. I checked information from ASV unit. ASV unit pressure EPAP15.0, pressure support 3-10, average 21.8 /15 cm H2O. Usage is 19 out of 30 nights for the last months, average 6.9 hours per night. Leak is 12 l/m, which is in acceptable range. Apnea Hypopnea Index is 2.0, which is normal. MEDICATIONS:1. Morphine 15 mg twice a day 2. Doxazosin 2 mg once a day 3. Enalapril 10 mg once a day 4. Furosemide 40 mg as needed 5. Albuterol During physical exam: GENERAL: A pleasant patient without any distress. VITAL SIGNS: BP 130/81, HR 82, RR 16 , weight 180.4, temperature 97.2, oxygen saturation at room air 95 % . HEENT: PERRLA, EOMI.low position of soft palate, Mallapati 4 . NECK: Supple. No JVD. LUNGS: Clear to percussion and to auscultation. Good air exchange. No wheezing or rhonchi. HEART: S1, S2 regular. ABDOMEN: Soft and nontender.[] EXTREMITIES: No clubbing or cyanosis. DRAFTER (CAD) ELECTRONIC: Awake, alert, and oriented x3. No focal deficit. Impressions: 1. Central and Obstructive sleep apnea-hypopnea syndrome. Patient demonstrated borderline compliance with treatment, benefiting from treatment. Recently patient developed shortness of breath at night and during the day. 2. Hypertension. 3. Back problems. 4. Status post back surgery. 5. Status post left knee replacement. 6. Status post left shoulder surgery for rotator cuff. 7. Patient is on treatment with morphine, which may increase risk for central sleep apnea. 8. Patient is on treatment with ASV. Treatment with ASV is contraindicated if ejection fraction is less than 45%. Plan: 1. Echocardiogram to check ejection fraction at the present time . 2. Repeat titration with BiPAP ST mode unit, if necessary ASV. 3. PAP unit should stay lower then position of the head. 4. Advised patient to remove all remaining water from humidifier canister daily and make it dry after each usage. Refill canister with fresh distilled water before each usage. 5. Sleep hygiene with regular time in bed for at least 8 hours. 6. Precautions related to driving. No driving if feel any sleepiness. 7. I will maintain prescription for PAP supplies including mask, tube, filters. 8. Follow up visit after titration. 9. Watching weight. Thank you very much for allowing me to participate in the management of your patient. Greg Pickering MD, PhD, FAASM. Diplomat of Citizen [place] Board of Sleep Medicine, Sleep Medicine Board by [place] Board of Internal Medicine Eligibility Counselor of [facility] [place]
== END ==
LOC: 3 N SLEEP 11:17
PROVIDERS: ATTEND Internal Medicine
DX: G47.33 Obstructive sleep apnea (adult) (pediatric) (principal); I10 Essential (primary) hypertension; G47.31 Primary central sleep apnea; M53.9 Dorsopathy, unspecified; I70.90 Unspecified atherosclerosis; Z96.652 Presence of left artificial knee joint; Z79.84 Long term (current) use of oral hypoglycemic drugs; Z79.899 Other long term (current) drug therapy
CPT/HCPCS: 99212

== ENCOUNTER → 2023-09-30 | Outpatient (CLI) | payer MEDICARE ==
--- NOTE | 2023-10-01 11:44 | CA ---
Transthoracic Echo Report Name: Sg Dickson Age: 67 Gender: M : 1955 Exam Date: 09/30/2023 13:33 Exam Location: [facility] Ht (in): 66 Wt (lb): 178 Ordering Physician: Greg Pickering MD Attending/Referring Phys: Jewelry Maker Carolina Quiroz RDCS Procedure CPT: Indications: SLEEP APNEA G47.30 Cardiac Hx: Technical Quality: Fair Contrast 1: Total Dose (mL): Contrast 2: Total Dose (mL): MEASUREMENTS (Male / Female) Normal Values 2D ECHO LV Diastolic Diameter PLAX 3.9 cm 4.2 - 5.9 / 3.9 - 5.3 cm LV Systolic Diameter PLAX 3.1 cm IVS Diastolic Thickness 1.2 cm 0.6 - 1.0 / 0.6 - 0.9 cm LVPW Diastolic Thickness 1.1 cm 0.6 - 1.0 / 0.6 - 0.9 cm LV Relative Wall Thickness 0.6 RV Internal Dim ED PLAX 3.4 cm LA Systolic Diameter LX 3.2 cm 3.0 - 4.0 / 2.7 - 3.8 cm LV Diastolic Volume MOD 4C 91.1 cm??? LV Systolic Volume MOD 4C 44.5 cm??? LV Ejection Fraction MOD 4C 51.1 % LV Cardiac Index MOD 4C 1686.2 cm???/min???m??? LV Diastolic Length 4C 8.1 cm LV Systolic Length 4C 7.0 cm LV Diastolic Volume MOD 2C 69.1 cm??? LV Systolic Volume MOD 2C 31.7 cm??? LV Ejection Fraction MOD 2C 54.2 % LV Cardiac Index MOD 2C 1355.5 cm???/min???m??? LV Diastolic Length 2C 8.2 cm LV Systolic Length 2C 6.8 cm LA Volume 33.0 cm??? 18 - 58 / 22 - 52 cm??? LA Volume Index 16.8 cm???/m??? 16 - 28 cm???/m??? M-MODE Aortic Root Diameter MM 3.9 cm MV E Point Septal Separation 0.5 cm AV Cusp Separation MM 2.2 cm DOPPLER AV Peak Velocity 112.2 cm/s AV Peak Gradient 5.0 mmHg MV Area PHT 2.5 cm??? Mitral E Point Velocity 60.4 cm/s Mitral A Point Velocity 80.5 cm/s Mitral E to A Ratio 0.8 MV Deceleration Time 304.3 ms MV E' Velocity 11.3 cm/s Mitral E to MV E' Ratio 5.4 TR Peak Velocity 267.6 cm/s TR Peak Gradient 28.7 mmHg Right Ventricular Systolic Press 33.7 mmHg FINDINGS Left Ventricle Left ventricular ejection fraction is estimated at 55-60 %. Small left ventricular cavity. Mildly increased septal wall thickness. Right Ventricle Mild right ventricular dilatation. Right ventricular systolic pressure within normal limits. Right Atrium Normal right atrial size. Left Atrium Normal left atrial size. Mitral Valve Structurally normal mitral valve. Trace to mild mitral regurgitation. Aortic Valve Trileaflet aortic valve. No aortic valve stenosis or regurgitation. Tricuspid Valve Structurally normal tricuspid valve. Trace to mild tricuspid regurgitation. Pulmonic Valve Structurally normal pulmonic valve. Mild pulmonic regurgitation. Pericardium No pericardial effusion. Aorta Mild aortic dilatation at the level of the sinuses of valsalva 39 mm CONCLUSIONS Left ventricular ejection fraction 55-60% Mildly increased left ventricular wall thickness Trace to mild mitral regurgitation RVSP 33 Previewed by: Dr. Celso Rojas DO (Electronically Signed) Final Date: 01 October 2023 11:43
== END | disposition home or self-care (01) ==
LOC: RADECHMAIN 13:30
PROVIDERS: ATTEND Internal Medicine
DX: I34.0 Nonrheumatic mitral (valve) insufficiency (principal); G47.30 Sleep apnea, unspecified; I51.7 Cardiomegaly
CPT/HCPCS: 93306

== ENCOUNTER 2023-10-06 19:44 | Outpatient (CLI) | payer MEDICARE ==
--- NOTE | 2023-10-12 15:29 | P.PCN ---
Description of Procedure: CLINICAL: Titration with positive air pressure has been done for correction of respiratory abnormalities during sleep. DESCRIPTION OF PROCEDURE: The standard montage for clinical polysomnography included the electroencephalogram, the electrocardiogram, the mentalis surface electromyography and Lead II cardiography. The respiratory battery consisted of measurements of nasal /buccal air flow, pressure transducer measurements from the nose, thoracic and /or abdominal effort and intercostal surface electromyography. Video monitoring has been done to check for any parasomnia events. Nocturnal oxyhemoglobin saturations were obtained by finger oximetry. Step-diaz titration with positive airway pressure was utilized to control respiratory events. Raw data of sleep recording has been reviewed and is adequate. RESULTS: Sleep efficiency was slightly decreased to 85.5 %. Latency to sleep onset was normal 8.5 minutes.]. Sleep architecture showed stage N1 was short 3.2 %, Delta sleep was normal 15.0 %, REM sleep was in high range 27.5 %. Heart rate was minimum 56 BPM, maximum 67 BPM, average 60 BPM. EMG showed 14.2 periodic limb movements per hour with 0 micriarousals per hour. BPAP ST mode titration have been done up to the pressure 17/13 cm H2O. The best results were at the pressure 16/12 with respiratory rate 12 cm H2O. Apnea hypopnea index reduced to 0.3 and patient was at that pressure in non-REM sleep for 113 minutes and 10 REM sleep for 70.5 minutes. IMPRESSION: 1. Obstructive and central sleep apnea hypopnea syndrome mostly on controle with BPAP ST mode treatment. 2. Periodic limb movements have been documented at the beginning of sleep study. Please see other impressions from consultation. PLAN: 1. The patient will have treatment with positive air pressure equipment with the level of pressure BPAP ST mode 15/11 cm H2O with respiratory rate 12 and should use it every night for the whole night. 2. Watching weight. 3. Sleep hygiene with regular time in bed for at least 8 hours. 4. No driving if feeling any sleepiness. 5. I will see the patient for follow up visit to explain the results of the test, recommendations, check compliance with treatment and make any necessary adjustment related to mask fitting, pressure and humidification. 6. Please check iron profile including ferritin level. Low level of iron may increase risk for periodic limb movements Thank you very much for allowing me to participate in the management of your patient. Sincerely, Greg Pickering MD, PhD, FAASM Diplomat of [place] [employer] Sleep Medicine Board of [place] Board of Internal Medicine Receiver Stocker of [facility] [place]
== END 2023-10-07 05:30 | disposition home or self-care (01) ==
LOC: 3 N SLEEP 19:44
PROVIDERS: ATTEND Internal Medicine
DX: G47.33 Obstructive sleep apnea (adult) (pediatric) (principal); G47.61 Periodic limb movement disorder; G47.31 Primary central sleep apnea
CPT/HCPCS: 95811

== ENCOUNTER → 2024-09-17 | Outpatient (CLI) | payer MEDICARE ==
[2024-09-17 11:12] VITALS: BP 155/66; PULSE 62; RESP 18; TEMP 97.6
--- NOTE | 2024-09-17 11:32 | P.PROGSL ---
Subjective DATE: 09/17/2024 FOLLOW UP VISIT. Patient with obstructive sleep apnea hypopnea syndrome return to sleep center for follow-up visit. Information from previous visit have been reviewed. Recently patient had bilateral cataract surgery and because of that was not able to use CPAP equipment every night for the last months. Patient is using PAP equipment every night for the whole night, getting PAP supplies in time. The patient does not have significant problems with the mask, PAP unit and humidification. [place] sleepiness scale is increased to 21. I checked information from PAP unit. BPAP ST mode unit pressure 15/11 with respiratory rate 12 cm H2O. Usage is 80% for more then 4 hours, average 5.7 hours per night. Leak is 5 l/m, which is in good range. Apnea Hypopnea Index is 2.2, which is normal. MEDICATIONS have been reviewed, please see below. During physical exam: GENERAL: A pleasant patient without any distress. VITAL SIGNS: Please see below, weight is 186 lbs. HEENT: PERRLA, EOMI.low position of soft palate, Mallapati 4 . NECK: Supple. No JVD. LUNGS: Clear to percussion and to auscultation. Good air exchange. No wheezing or rhonchi. HEART: S1, S2 regular. ABDOMEN: Soft and nontender.[] EXTREMITIES: No clubbing or cyanosis. PRODUCTION SPECIALIST: Awake, alert, and oriented x3. No focal deficit. Impressions: 1. Obstructive sleep apnea-hypopnea syndrome. Patient demonstrated great compliance with treatment, benefiting from treatment. 2. Mild obesity, BMI 30.7, patient increased weight on 6 pounds comparing with previous visit. 3. Status post recent bilateral cataract surgery. 4. Hypertension. 5. Back problems. 6. Status post back surgery. 7. Status post left knee replacement. 8. Status post left shoulder surgery for rotator cuff. Plan: 1. Continue using BPAP ST equipment every night for the whole night. 2. Sleep hygiene with regular time in bed for at least 7.5-8 hours 3. PAP unit should stay lower then position of the head. 4. Advised patient to remove all remaining water from humidifier canister daily and make it dry after each usage. Refill canister with fresh distilled water before each usage. 5. Watching weight. 6. Precautions related to driving. No driving if feel any sleepiness. 7. I will maintain prescription for PAP supplies including mask, tube, filters. 8. Follow up visit in 8 months or earlier if patient has any problems. Thank you very much for allowing me to participate in the management of your patient. Greg Pickering MD, PhD, FAASM. Diplomat of [place] Board of Sleep Medicine, Sleep Medicine Board by [place] Board of Internal Medicine Industrial Engineering Technologist of [facility] [place] Objective - Vital Signs Vital Signs: Vital Signs Temp 97.6 F 09/17/24 11:11 Pulse 62 09/17/24 11:11 Resp 18 09/17/24 11:11 BP 155/66 09/17/24 11:11 Pulse Ox 96 09/17/24 11:11 FiO2 Intake & Output 09/16/24 09/17/24 09/17/24 18:59 06:59 18:59 Weight 84.368 kg Home Medications: Home Medications Medication Instructions Recorded Confirmed Type Docusate [Colace] 100 mg PO DAILY@1200 06/07/20 06/07/20 History Doxazosin Mesylate 2 mg PO HS 06/07/20 06/07/20 History Enalapril Maleate [Vasotec] 5 mg PO DAILY 06/07/20 06/07/20 History Ferrous Sulfate [Iron (65 MG 325 mg PO DAILY@1200 06/07/20 06/07/20 History Elemental)] Furosemide [Lasix] 20 mg PO DAILY PRN 06/07/20 06/07/20 History Morphine Sulfate Ir [MSIR] 30 mg PO TID PRN 06/07/20 09/17/24 History Spironolactone [Aldactone] 12.5 mg PO HS 06/07/20 06/07/20 History Melatonin 3 mg PO HS PRN tablet 06/08/20 Rx Naproxen [Naprosyn] 250 mg PO TID #60 tab 06/08/20 Rx Albuterol Inhaler [Ventolin Hfa 1 puff INHALATION QID #8 gm 07/30/22 09/17/24 Rx Inhaler] dexAMETHasone [Decadron] 4 mg PO DAILY 4 Days #4 tab 07/30/22 Rx Doxazosin [Cardura] 2 mg PO DAILY 09/17/24 09/17/24 History Enalapril [Vasotec] 10 mg PO DAILY 09/17/24 09/17/24 History
== END ==
LOC: 3 N SLEEP 10:41
PROVIDERS: ATTEND Internal Medicine
DX: G47.33 Obstructive sleep apnea (adult) (pediatric) (principal); E66.9 Obesity, unspecified; Z68.30 Body mass index [BMI] 30.0-30.9, adult; I10 Essential (primary) hypertension; Z98.41 Cataract extraction status, right eye; Z98.42 Cataract extraction status, left eye; Z98.890 Other specified postprocedural states; Z99.89 Dependence on other enabling machines and devices; Z79.899 Other long term (current) drug therapy
CPT/HCPCS: 99212